=== PATIENT | female | born 2005 | race Caucasian/White ===

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

== ENCOUNTER 2025-06-16 05:04 | Emergency (ER) | payer OTHER, SELFPAY ==
[2025-06-16] VITALS (13 sets, daily range): BP systolic 99–146; BP diastolic 60–67; PULSE 69–81; RESP 16; TEMP 36.4; O2SAT 98–99; BMI 32.6
--- NOTE | 2025-06-16 05:18 | ED.GENADULT ---
HPI - General Adult <Sujit Manley MD - Last Filed: 06/16/25 17:32> General Chief complaint: Abdominal Pain Stated complaint: 6wks gestation, severe cramping, headache Time Seen by Provider: 06/16/25 05:11 History of Present Illness HPI narrative: 19-year-old female reports last menstrual period 05/02/2025, with expected due date 02/06/2026, awaiting 1st visit, no imaging this , already this morning started having low abdominal cramping, no vaginal bleeding, no leaking of fluid. No painful or frequent urination. No fevers or chills. No injury or trauma new activities. Also some headache. Related Data Previous Rx's ?Medication ?Instructions ?Recorded oxycodone 5 mg tablet 5 mg PO Q6H PRN pain #5 tabs 06/16/25 Allergies Allergy/AdvReac Type Severity Reaction Status Date / Time No Known Drug Allergies Allergy Verified 06/04/25 09:00 Patient History <Sujit Manley MD - Last Filed: 06/16/25 17:32> Medical History (Updated 06/16/25 @ 08:11 by Verenice Guy DO) Witnessed seizure-like activity Surgical History (Updated 06/04/25 @ 09:03 by Elodia Gordon RN) No pertinent past surgical history Family History (Updated 06/04/25 @ 09:05 by Elodia Gordon RN) Mother PCOS (polycystic ovarian syndrome) IBS (irritable bowel syndrome) Multiple sclerosis Father Skin cancer Social History (Updated 06/04/25 @ 07:56 by Elodia Gordon RN) marital status: number of children: 0 household members: spouse lives independently: No caregiver/support person: No housing: apartment pets and animals: Yes (cats) education level: high school occupational status: unemployed current occupational exposures/hazards: No Previous occupational history: Tooling Engineering Tech tabby/rastafarian: None special tabby needs: No travel history: recent (domestic only) sexual history: One regular partner in the past 3 years leisure activities: art, music, games and volunteer work seatbelt use: always helmet use: Yes water heater temp set < 120 deg: Yes working smoke detector in home: Yes fire extinguisher in home: Yes carbon monox detector in home: Yes firearms in home: No do you feel safe at home: Yes Tobacco: How many years used: 3 quit status: considering quitting second hand exposure: Yes alcohol intake: former (~2-3/week when not ) substance use type: marijuana (advised not to use while /) during the past year weight has: remained stable well-balanced diet: about half the time daily servings fruits/ve-4 caffeine: Yes eating out: 1-3 times/week Type(s) of exercise: walking and yoga frequency: 5-6 times per week duration: 15-30 minutes/day Exam <Sujit Manley MD - Last Filed: 06/16/25 17:32> Narrative Exam Narrative: GENERAL: Well-developed patient, in mild distress. HEAD: Atraumatic. Normocephalic. EYES: Pupils equal round and reactive. Extraocular motions intact. No scleral icterus. No injection or drainage. ENT: No obvious craniofacial trauma swelling redness NECK: Trachea midline. Non tender CARDIOVASCULAR: Regular rate and rhythm without murmurs, gallops, or rubs. RESPIRATORY: Clear to auscultation. Breath sounds equal bilaterally. No wheezes, rales, or rhonchi. GASTROINTESTINAL: Abdomen soft, non-tender, nondistended. EXTREMITIES: No edema or joint tenderness. BACK: Nontender without deformity or crepitance. No flank tenderness. NEURO: AOx3. Motor functions grossly nonfocal. SKIN: No rash or erythema of visible areas Initial Vital Signs Initial Vital Signs: Vital Signs Temperature 97.6 F 06/16/25 05:16 Pulse Rate 79 06/16/25 05:16 Respiratory Rate 16 06/16/25 05:16 Blood Pressure 146/65 H 06/16/25 05:16 Pulse Oximetry 99 06/16/25 05:16 Oxygen Delivery Method Room Air 06/16/25 05:16 <Verenice Guy DO - Last Filed: 06/16/25 12:28> Initial Vital Signs Initial Vital Signs: Vital Signs Temperature 97.6 F 06/16/25 05:16 Pulse Rate 79 06/16/25 05:16 Respiratory Rate 16 06/16/25 05:16 Blood Pressure 146/65 H 06/16/25 05:16 Pulse Oximetry 99 06/16/25 05:16 Oxygen Delivery Method Room Air 06/16/25 05:16 Course <Sujit Manley MD - Last Filed: 06/16/25 17:32> Orders Ordered: Discontinued Medications Acetaminophen (Acetaminophen 325 Mg Tablet) 975 mg PO NOW ONE Stop: 06/16/25 07:41 Last Admin: 06/16/25 07:49 Dose: 975 mg Documented By: KELVIN Oxycodone HCl (Oxycodone Ir 5 Mg Tablet) 5 mg PO NOW ONE Stop: 06/16/25 08:40 Last Admin: 06/16/25 08:46 Dose: 5 mg Documented By: CONY Vital Signs Vital signs: Vital Signs - 8 hr 06/16/25 05:16 06/16/25 05:16 06/16/25 05:16 Temperature 97.6 F Pulse Rate 79 81 Respiratory Rate 16 Blood Pressure 146/65 H 146/65 H Pulse Oximetry 99 99 Oxygen Delivery Method Room Air 06/16/25 05:30 06/16/25 05:31 06/16/25 05:31 Temperature Pulse Rate 76 76 Respiratory Rate Blood Pressure 116/65 Pulse Oximetry 98 99 Oxygen Delivery Method 06/16/25 06:00 06/16/25 06:00 06/16/25 06:30 Temperature Pulse Rate 71 73 Respiratory Rate Blood Pressure 110/63 Pulse Oximetry 99 99 Oxygen Delivery Method 06/16/25 06:34 06/16/25 06:34 06/16/25 07:00 Temperature Pulse Rate 76 Respiratory Rate Blood Pressure 118/65 111/65 Pulse Oximetry 99 Oxygen Delivery Method 06/16/25 07:00 06/16/25 07:30 06/16/25 07:41 Temperature Pulse Rate 72 73 78 Respiratory Rate Blood Pressure Pulse Oximetry 99 98 99 Oxygen Delivery Method 06/16/25 07:41 06/16/25 08:00 06/16/25 08:30 Temperature Pulse Rate 69 71 Respiratory Rate Blood Pressure 99/67 Pulse Oximetry 98 99 Oxygen Delivery Method 06/16/25 08:34 06/16/25 08:34 06/16/25 09:03 Temperature Pulse Rate 75 72 Respiratory Rate Blood Pressure 110/67 113/60 Pulse Oximetry 99 99 Oxygen Delivery Method Room Air <Verenice Guy DO - Last Filed: 06/16/25 12:28> Orders Ordered: Discontinued Medications Acetaminophen (Acetaminophen 325 Mg Tablet) 975 mg PO NOW ONE Stop: 06/16/25 07:41 Last Admin: 06/16/25 07:49 Dose: 975 mg Documented By: KELVIN Oxycodone HCl (Oxycodone Ir 5 Mg Tablet) 5 mg PO NOW ONE Stop: 06/16/25 08:40 Last Admin: 06/16/25 08:46 Dose: 5 mg Documented By: CONY Vital Signs Vital signs: Vital Signs - 8 hr 06/16/25 05:16 06/16/25 05:16 06/16/25 05:16 Temperature 97.6 F Pulse Rate 79 81 Respiratory Rate 16 Blood Pressure 146/65 H 146/65 H Pulse Oximetry 99 99 Oxygen Delivery Method Room Air 06/16/25 05:30 06/16/25 05:31 06/16/25 05:31 Temperature Pulse Rate 76 76 Respiratory Rate Blood Pressure 116/65 Pulse Oximetry 98 99 Oxygen Delivery Method 06/16/25 06:00 06/16/25 06:00 06/16/25 06:30 Temperature Pulse Rate 71 73 Respiratory Rate Blood Pressure 110/63 Pulse Oximetry 99 99 Oxygen Delivery Method 06/16/25 06:34 06/16/25 06:34 06/16/25 07:00 Temperature Pulse Rate 76 Respiratory Rate Blood Pressure 118/65 111/65 Pulse Oximetry 99 Oxygen Delivery Method 06/16/25 07:00 06/16/25 07:30 06/16/25 07:41 Temperature Pulse Rate 72 73 78 Respiratory Rate Blood Pressure Pulse Oximetry 99 98 99 Oxygen Delivery Method 06/16/25 07:41 06/16/25 08:00 06/16/25 08:30 Temperature Pulse Rate 69 71 Respiratory Rate Blood Pressure 99/67 Pulse Oximetry 98 99 Oxygen Delivery Method 06/16/25 08:34 06/16/25 08:34 06/16/25 09:03 Temperature Pulse Rate 75 72 Respiratory Rate Blood Pressure 110/67 113/60 Pulse Oximetry 99 99 Oxygen Delivery Method Room Air Medical Decision Making <Sujit Manley MD - Last Filed: 06/16/25 17:32> Lab Data Lab results reviewed: Yes I reviewed the patient's lab results. Lab results narrative: White blood cell count 7300, hemoglobin 12.8, normal platelets. Glucose 86. Normal renal function, normal potassium. Sodium slight low. Serum CO2 slight low. Liver functions and lipase normal. Urinalysis without obvious infectious changes. 06/16/25 06:30 06/16/25 06:30 Labs: Lab Results 06/16/25 06/16/25 Range/Units 06:13 06:30 WBC 7.3 (4.5-11.0) X10^3/uL RBC 4.50 (4.0-5.2) X10^6/uL Hgb 12.8 (12.0-16.0) g/dL Hct 37.6 (36-46) % MCV 83.6 (80-100) fL MCH 28.5 (26-34) PG MCHC 34.1 (30-36) % RDW 14.4 (11.6-14.8) % Plt Count 240 (150-400) X10^3/uL Neut % (Auto) 58.7 (50-75) % Lymph % (Auto) 29.5 (25-40) % [place] % (Auto) 6.7 (3-14) % Eos % (Auto) 4.2 H (2-4) % Baso % (Auto) 0.9 (0-2) % Neut # (Auto) 4300 (0110-9312) /uL Lymph # (Auto) 2100 (7489-6889) /uL [place] # (Auto) 500 (0-900) /uL Eos # (Auto) 300 (0-450) /uL Baso # (Auto) 100 (0-100) /uL Sodium 136 L (137-145) mmol/L Potassium 3.5 (3.4-5.1) mmol/L Chloride 107 (98-107) mmol/L Carbon Dioxide 20 L (22-32) mmol/L BUN 10 (7-17) mg/dL Creatinine 0.64 (0.52-1.04) mg/dL Estimated GFR > 60 (>60) mL/min BUN/Creatinine Ratio 15.6 (6-22) Glucose 86 (70-99) mg/dL Calcium 8.9 (8.4-10.2) mg/dL Total Bilirubin 0.2 (0.2-1.3) mg/dL AST 25 (14-36) IU/L ALT 20 (<35) IU/L Alkaline Phosphatase 59 (38-126) U/L Total Protein 7.2 (6.3-8.2) g/dL Albumin 4.3 (3.5-5.0) g/dL Globulin 2.9 (1.7-4.1) g/dL Albumin/Globulin Ratio 1.5 (1.0-2.8) HCG, Quant 42752 mIU/mL Urine RBC 5-10/hpf H (0-5/HPF) Urine WBC None seen (0-5/HPF) Ur Squamous Epith Cells 5-10 /hpf H (0-5/HPF) Urine Bacteria Occasional (0-1) (None) Ur Culture Indicated? Cult not indicated Vol Urine Centrifuged 10ml (spun) Point of Care Testing Test Results Positive Urine Dip Bedside Urine Glucose Negative Bedside Urine Bilirubin - Negative Bedside Urine Ketone - Negative Urine Specific [place] 1.010 Bedside Urine Occult Blood +++ Bedside Urine pH 6.0 Bedside Urine Protein - Negative Bedside Urine Urobilinogen - Negative Bedside Urine Nitrite - Negative Bedside Urine Leukocytes - Negative Esterase Point of care testing: Point of Care Testing Test Results Positive Urine Dip Bedside Urine Glucose Negative Bedside Urine Bilirubin - Negative Bedside Urine Ketone - Negative Urine Specific [place] 1.010 Bedside Urine Occult Blood +++ Bedside Urine pH 6.0 Bedside Urine Protein - Negative Bedside Urine Urobilinogen - Negative Bedside Urine Nitrite - Negative Bedside Urine Leukocytes - Negative Esterase MDM Narrative Medical decision making narrative: 19-year-old with home test, might be 6 weeks gestation by last menstrual period 05/02/2025, ASHLEY 02/06/2026, abdominal pain early this morning, cramping, no vaginal bleeding. Ultrasound pelvis requested. Lab data: White blood cell count 7300, hemoglobin 12.8, normal platelets. Glucose 86. Normal renal function, normal potassium. Sodium slight low. Serum CO2 slight low. Liver functions and lipase normal. Urinalysis without obvious infectious changes. 0610, Ultrasound pelvis shows intrauterine 6 weeks 1 day estimated size per verbal report sono tech. Radiology report pending. 0700, Pelvic US report pending, signed out to Dr Guy Patient signed out to myself while US report is pending. HCG resulted 20,846. Labs reviewed, urine shows blood, squamous epithelials. Ultrasound report single your gestation with a estimated gestational age 6 weeks 1 day based on crown-rump length tried these dates or concordant with dates for LMP. No subchorionic hemorrhage or complex adenoma mass suspicious for ectopic . heart rate of 107 beats per minute, 4 mm yolk sac noted. Patient notes she has been having abdominal pain has a little bit down her legs as well she has a notes some back discomfort. She is nontender on physical exam. Patient states she has been told she has not overactive bladder in the past she has seen Urology in the past. We have a short course of pain medication. Discussed she does have follow up with primary care in the next month, she has follow up with the provider by the end of June. Discussed return precautions all questions answered. <Verenice Guy, - Last Filed: 06/16/25 12:28> Lab Data Labs: Lab Results 06/16/25 06/16/25 Range/Units 06:13 06:30 WBC 7.3 (4.5-11.0) X10^3/uL RBC 4.50 (4.0-5.2) X10^6/uL Hgb 12.8 (12.0-16.0) g/dL Hct 37.6 (36-46) % MCV 83.6 (80-100) fL MCH 28.5 (26-34) PG MCHC 34.1 (30-36) % RDW 14.4 (11.6-14.8) % Plt Count 240 (150-400) X10^3/uL Neut % (Auto) 58.7 (50-75) % Lymph % (Auto) 29.5 (25-40) % [place] % (Auto) 6.7 (3-14) % Eos % (Auto) 4.2 H (2-4) % Baso % (Auto) 0.9 (0-2) % Neut # (Auto) 4300 (8477-9489) /uL Lymph # (Auto) 2100 (2885-6582) /uL [place] # (Auto) 500 (0-900) /uL Eos # (Auto) 300 (0-450) /uL Baso # (Auto) 100 (0-100) /uL Sodium 136 L (137-145) mmol/L Potassium 3.5 (3.4-5.1) mmol/L Chloride 107 (98-107) mmol/L Carbon Dioxide 20 L (22-32) mmol/L BUN 10 (7-17) mg/dL Creatinine 0.64 (0.52-1.04) mg/dL Estimated GFR > 60 (>60) mL/min BUN/Creatinine Ratio 15.6 (6-22) Glucose 86 (70-99) mg/dL Calcium 8.9 (8.4-10.2) mg/dL Total Bilirubin 0.2 (0.2-1.3) mg/dL AST 25 (14-36) IU/L ALT 20 (<35) IU/L Alkaline Phosphatase 59 (38-126) U/L Total Protein 7.2 (6.3-8.2) g/dL Albumin 4.3 (3.5-5.0) g/dL Globulin 2.9 (1.7-4.1) g/dL Albumin/Globulin Ratio 1.5 (1.0-2.8) HCG, Quant 42042 mIU/mL Urine RBC 5-10/hpf H (0-5/HPF) Urine WBC None seen (0-5/HPF) Ur Squamous Epith Cells 5-10 /hpf H (0-5/HPF) Urine Bacteria Occasional (0-1) (None) Ur Culture Indicated? Cult not indicated Vol Urine Centrifuged 10ml (spun) Point of Care Testing Test Results Positive Urine Dip Bedside Urine Glucose Negative Bedside Urine Bilirubin - Negative Bedside Urine Ketone - Negative Urine Specific [place] 1.010 Bedside Urine Occult Blood +++ Bedside Urine pH 6.0 Bedside Urine Protein - Negative Bedside Urine Urobilinogen - Negative Bedside Urine Nitrite - Negative Bedside Urine Leukocytes - Negative Esterase Point of care testing: Point of Care Testing Test Results Positive Urine Dip Bedside Urine Glucose Negative Bedside Urine Bilirubin - Negative Bedside Urine Ketone - Negative Urine Specific [place] 1.010 Bedside Urine Occult Blood +++ Bedside Urine pH 6.0 Bedside Urine Protein - Negative Bedside Urine Urobilinogen - Negative Bedside Urine Nitrite - Negative Bedside Urine Leukocytes - Negative Esterase [facility] Narrative Medical decision making narrative: 19-year-old with home test, might be 6 weeks gestation by last menstrual period 05/02/2025, ASHLEY 02/06/2026, abdominal pain early this morning, cramping, no vaginal bleeding. Ultrasound pelvis requested. Lab data: White blood cell count 7300, hemoglobin 12.8, normal platelets. Glucose 86. Normal renal function, normal potassium. Sodium slight low. Serum CO2 slight low. Liver functions and lipase normal. Urinalysis without obvious infectious changes. 0610, Ultrasound pelvis shows intrauterine 6 weeks 1 day estimated size per verbal report [employer] tech. Radiology report pending. Patient signed out to myself while US report is pending. HCG resulted 20,846. Labs reviewed, urine shows blood, squamous epithelials. Ultrasound report single your gestation with a estimated gestational age 6 weeks 1 day based on crown-rump length tried these dates or concordant with dates for LMP. No subchorionic hemorrhage or complex adenoma mass suspicious for ectopic . heart rate of 107 beats per minute, 4 mm yolk sac noted. Patient notes she has been having abdominal pain has a little bit down her legs as well she has a notes some back discomfort. She is nontender on physical exam. Patient states she has been told she has not overactive bladder in the past she has seen Urology in the past. We have a short course of pain medication. Discussed she does have follow up with primary care in the next month, she has follow up with the provider by the end of June. Discussed return precautions all questions answered. Discharge Plan Departure Patient Disposition: Home Clinical Impression: Abdominal pain during Instructions: DI for Abdominal Pain -- Early Activity Restrictions/Additional Instructions: Follow up with your provider. If you do not have one contact is included below. You can take acetaminophen up to a 1000 mg every 6 hours as needed for abdominal pain. If inadequate for pain you can take oxycodone 1 tablet every 6 hours as needed. This medication can make you sleepy do not drive, perform hazardous activities or make any major decisions while taking it. This medication will make you constipated please take a stool softener once to twice daily until stools are soft and regular. Prescription sent to [facility] in [place]. Please return if you develop severe pain, fevers, persistent vomiting, black or bloody stools, new vaginal bleeding or other new or concerning changes. Prescriptions: New oxycodone 5 mg tablet 5 mg PO Q6H PRN (Reason: pain) Qty: 5 0RF Referrals: Miscellaneous,DoctorMD [Primary Care Provider, Medical] Kendra Riojas DO [Physician, PACKAGE CAR DRIVER] Stand Alone Forms: Patient Portal/API
--- NOTE | 2025-06-16 05:29 | DI.US.S_ITS ---
PROCEDURE: US PELVIC COMPLETE INDICATIONS: abd pain, 6 weeks gest TECHNIQUE: Real-time scanning was performed of the pelvic organs, with image documentation. Additional endovaginal scanning was necessary due to incomplete visualization of the adnexal and endometrial structures by transabdominal scanning. COMPARISON: [facility], US, US PELVIC COMPLETE, 12/18/2023, 6:35. FINDINGS: Uterus: The uterus is anteverted. Single intrauterine gestational sac noted parent crown-rump length measures 0.45 cm, this corresponds with a 6 week 1 day gestation. EDC of 02/08/2026 based on crown-rump length. LMP of 05/02/2025 corresponding to an estimated gestational age of 6 weeks 3 days and an EDC of 02/06/2026. These dates are concordant. heart rate of 107 beats per minute. 4 mm yolk sac noted. No subchorionic hemorrhage. Ovaries: Neither maternal ovary seen. No adnexal lesions concerning for an ectopic . Other: No pathologic free abdominal or pelvic fluid. IMPRESSION: Single intrauterine gestation with an estimated gestational age of 6 weeks 1 day based on crown-rump length trade these dates are concordant with dates the pace upon LMP. No subchorionic hemorrhage or complex adnexal mass suspicious for an ectopic . We strive to produce accurate, complete, and clear reports of imaging services. To assist us in improving patient care, this report was composed using standard report templates and voice recognition software. Therefore, it may contain abnormal punctuation, insertions and/or omissions. Occasional wrong-word or sound-alike substitutions may occur. Though we review the report and make efforts to correct it, we do recommend that the report be read carefully in proper context to recognize any text inaccuracies. Dictated by: Amy Mata M.D. on 06/16/2025 at 8:24 Approved by: Amy Mata M.D. on 06/16/2025 at 8:28
[2025-06-16 06:47] LABS: Add Manual Diff / Slide Review NO; Hematocrit 37.6 % (36-46); Hemoglobin 12.8 g/dL (12.0-16.0); Lymphocytes Absolute Auto 2100 /uL (1100-4500); Mean Corpuscular HGB Conc 34.1 % (30-36); Mean Corpuscular Hemoglobin 28.5 PG (26-34); Mean Corpuscular Volume 83.6 fL (80-100); Platelet Count 240 X10^3/uL (150-400)
[2025-06-16 07:00] LABS: Culture Indicated Urine Cult Not Indicated
[2025-06-16 07:01] LABS: Alanine Aminotransferase 20 IU/L (<35); Albumin 4.3 g/dL (3.5-5.0); Albumin Globulin Ratio 1.5 (1.0-2.8); Alkaline Phosphatase 59 U/L (38-126); Blood Urea Nitrogen 10 mg/dL (7-17); Calcium 8.9 mg/dL (8.4-10.2); Carbon Dioxide 20 mmol/L (22-32); Chloride 107 mmol/L (98-107); Estimated Glomerular Filt Rate > 60 mL/min (>60); Globulin 2.9 g/dL (1.7-4.1); Glucose 86 mg/dL (70-99); HEMOLYSIS < 15 (0-50); Potassium 3.5 mmol/L (3.4-5.1); Sodium 136 mmol/L (137-145); Total Protein 7.2 g/dL (6.3-8.2)
[2025-06-16 07:44] LABS: HCG Quantitative /Beta subunit 20846 mIU/mL
[2025-06-16] MEDS: ACETAMINOPHEN 325 MG TABLET 975 MG PO (07:49)
== END 2025-06-16 09:08 | disposition home or self-care (01) ==
PROVIDERS: Emergency Medicine; Emergency Provider Emergency Medicine
DX: O26.891 Other specified pregnancy related conditions, first trimester (principal); R10.30 Lower abdominal pain, unspecified; Z3A.01 Less than 8 weeks gestation of pregnancy
CPT/HCPCS: 36415; 76801; 76817; 80053; 81003; 81015; 81025; 84702; 85025; 87077; 87086; 87186; 99284

== ENCOUNTER → 2025-07-02 15:04 | Outpatient (CLI) | payer OTHER, SELFPAY ==
[2025-07-02 18:37] LABS: Urine N gonorrhoeae NOT DETECTED
[2025-07-02 18:38] LABS: Urine Chlamydia NOT DETECTED
== END ==
PROVIDERS: Visit Provider Obstetrics & Gynecology
DX: Z11.3 Encounter for screening for infections with a predominantly sexual mode of transmission (principal)
CPT/HCPCS: 87491; 87591

== ENCOUNTER → 2025-07-02 15:32 | Outpatient (CLI) | payer OTHER, SELFPAY ==
[2025-07-02 16:37] LABS: Alanine Aminotransferase 21 IU/L (<35); Albumin 4.2 g/dL (3.5-5.0); Albumin Globulin Ratio 1.6 (1.0-2.8); Alkaline Phosphatase 61 U/L (38-126); Blood Urea Nitrogen 5 mg/dL (7-17); Calcium 9.3 mg/dL (8.4-10.2); Carbon Dioxide 20 mmol/L (22-32); Chloride 108 mmol/L (98-107); Estimated Glomerular Filt Rate > 60 mL/min (>60); Globulin 2.6 g/dL (1.7-4.1); Glucose 117 mg/dL (70-99); HEMOLYSIS < 15 (0-50); Potassium 3.9 mmol/L (3.4-5.1); Sodium 137 mmol/L (137-145); Total Protein 6.8 g/dL (6.3-8.2)
[2025-07-02 21:28] LABS: Add Manual Diff / Slide Review NO
[2025-07-03 15:34] LABS: Hepatitis B Surface Antigen NEGATIVE s/c (NEGATIVE)
== END ==
PROVIDERS: PCP Nurse Practitioner Family; Referring Provider Obstetrics & Gynecology; Visit Provider Obstetrics & Gynecology
DX: O09.899 Supervision of other high risk pregnancies, unspecified trimester (principal); R56.9 Unspecified convulsions
CPT/HCPCS: 80053; 80055